=== PATIENT | female | born 1960 | race Caucasian/White ===

== ENCOUNTER 2016-11-01 05:52 | Day surgery (SDC) | payer BC ==
--- NOTE | ~2016-11-01 | EGD ---
EGD REPORT [facility] [address] [place] [place]. [address] NAME: IRAIS ALLEN : [birth year] STATUS : [facility]#: [id number] AGE: 56 ADM/REG DATE : 11/01/16 MR#: [id number] REPORT SERV DATE: 11/07/16 DICTATED BY: NIKO ROMERO DATE: 11/07/16 REPORT STATUS : Draft TRANSCRIBED BY: [employer] DATE: 11/07/16 [facility] Patient Name: Irais Allen Date of : 1960 Attending MD: NIKO ROMERO MD Procedure Date No Time: 11/01/2016 Procedure: Upper GI endoscopy Indications: Gastro-esophageal reflux disease, Nausea Referring MD: TIMO ROMO Medicines: See the Anesthesia note for documentation of the administered medications Complications: No immediate complications. Procedure: Pre-Anesthesia Assessment: - ASA Grade Assessment: III - A patient with severe systemic disease. After obtaining informed consent, the endoscope was passed under direct vision. Throughout the procedure, the patient's blood pressure, pulse, and oxygen saturations were monitored continuously. The GIF [id number] [id number] was introduced through the mouth, and advanced to the jejunum. The upper GI endoscopy was accomplished without difficulty. The patient tolerated the procedure well. Findings: The examined jejunum was normal. The examined esophagus was normal. Normal gastric bypass anatomy The gastric body was normal. Biopsies were taken with a cold forceps for histology. Impression: - Normal examined jejunum. - Normal esophagus. - Normal gastric bypass anatomy - Normal gastric body. Biopsied. Recommendation: - Patient has a contact number available for emergencies. The signs and symptoms of potential delayed complications were discussed with the patient. Return to normal activities tomorrow. Written discharge instructions were provided to the patient. - Regular diet. - Continue present medications. - FOR YOUR BIOPSY RESULTS: Please go to [email or web address] and register to receive your EGD REPORT [facility] [address] [address] NAME: RIAIS ALLEN : [birth year] STATUS : [facility] PAT#: [id number] AGE: 56 ADM/REG DATE : 11/01/16 MR#: [id number] REPORT SERV DATE: 11/07/16 DICTATED BY: NIKO ROMERO DATE: 11/07/16 REPORT STATUS : Draft TRANSCRIBED BY: [employer] DATE: 11/07/16 results via the portal. Your biopsy results will be posted there in about 7 to 10 days. IF you do not see result in 10 days, call office. Procedure Code(s): --- Professional --- 78170, Esophagogastroduodenoscopy, flexible, transoral; with biopsy, single or multiple Diagnosis Code(s): --- Professional --- K21.9, Gastro-esophageal reflux disease without esophagitis R11.0, Nausea CPT copyright 2013 [employer]. All rights reserved. The codes documented in this report are preliminary and upon commercial real estate associate review may be revised to meet current compliance requirements. Niko Romero MD NIKO ROMERO MD 11/01/2016 7:10 AM This report has been signed electronically. Number of Addenda: 0 Note Initiated On: 11/01/2016 6:59 AM Scope Withdrawal Time 0 hours 0 minutes [address] [place], [place] [address] [address]
--- NOTE | ~2016-11-01 | EGD ---
EGD REPORT [facility] [address] [place]. [address] NAME: IRAIS ALLEN : [birth year] STATUS : REG [facility]#: [id number] AGE: 56 ADM/REG DATE : 11/01/16 MR#: [id number] REPORT SERV DATE: 11/01/16 DICTATED BY: NIKO ROMERO DATE: 11/01/16 REPORT STATUS : Draft TRANSCRIBED BY: [employer] DATE: 11/01/16 [facility] Patient Name: Irais Allen Date of : 1960 Attending MD: NIKO ROMERO MD Procedure Date No Time: 11/01/2016 Procedure: Colonoscopy Indications: High risk colon cancer surveillance: Personal history of colonic polyps, Last colonoscopy: April 2013 Referring MD: TIMO ROMO Medicines: See the Anesthesia note for documentation of the administered medications Complications: No immediate complications. Procedure: Pre-Anesthesia Assessment: - ASA Grade Assessment: III - A patient with severe systemic disease. After I obtained informed consent, the scope was passed under direct vision. Throughout the procedure, the patient's blood pressure, pulse, and oxygen saturations were monitored continuously. The [id number] was introduced through the anus and advanced to the cecum, identified by appendiceal orifice and ileocecal valve. The colonoscopy was performed without difficulty. The patient tolerated the procedure well. The quality of the bowel preparation was adequate. Findings: The perianal and digital rectal examinations were normal. Internal hemorrhoids were found during retroflexion and were small. A sessile polyp was found in the cecum. The polyp was small in size. The polyp was removed with a cold biopsy forceps. Resection and retrieval were complete. Two sessile polyps were found in the ascending colon. The polyps were small in size. These polyps were removed with a cold biopsy forceps. Resection and retrieval were complete. A sessile polyp was found in the transverse colon. The polyp was 10 mm in size. The polyp was removed with a hot snare. Resection and retrieval were complete. Impression: - Internal hemorrhoids. - One small polyp in the cecum. Resected and retrieved. - Two small polyps in the ascending colon. Resected and retrieved. - One 10 mm polyp in the transverse colon. Resected and retrieved. EGD REPORT [address] [address] NAME: IRAIS ALLEN : [birth year] STATUS : [facility] [place]#: [id number] AGE: 56 ADM/REG DATE : 11/01/16 MR#: [id number] REPORT SERV DATE: 11/01/16 DICTATED BY: NIKO ROMERO DATE: 11/01/16 REPORT STATUS : Draft TRANSCRIBED BY: [employer] DATE: 11/01/16 Recommendation: - Patient has a contact number available for emergencies. The signs and symptoms of potential delayed complications were discussed with the patient. Return to normal activities tomorrow. Written discharge instructions were provided to the patient. - Regular diet. - Continue present medications. - Repeat colonoscopy in 3 years for surveillance. - FOR YOUR BIOPSY RESULTS: Please go to [email or web address] and register to receive your results via the portal. Your biopsy results will be posted there in about 7 to 10 days. IF you do not see result in 10 days, call office. Procedure Code(s): --- Professional --- 77946, Colonoscopy, flexible, proximal to splenic flexure; with removal of tumor(s), polyp(s), or other lesion(s) by snare technique 37863, 59, Colonoscopy, flexible, proximal to splenic flexure; with biopsy, single or multiple Diagnosis Code(s): --- Professional --- K64.8, Other hemorrhoids D12.3, Benign neoplasm of transverse colon D12.2, Benign neoplasm of ascending colon D12.0, Benign neoplasm of cecum Z86.010, Personal history of colonic polyps CPT copyright 2013 [place]. All rights reserved. The codes documented in this report are preliminary and upon agriculture laboratory technician review may be revised to meet current compliance requirements. Niko Romero MD NIKO ROMERO MD 11/01/2016 7:32 AM This report has been signed electronically. Number of Addenda: 0 Note Initiated On: 11/01/2016 6:57 AM Scope Withdrawal Time 0 hours 15 minutes 50 seconds [address] [place] [address]
--- NOTE | ~2016-11-01 | EGD ---
EGD REPORT [facility] [address]. [address] NAME: OSMAN ALLEN : [birth year] STATUS : REG [facility]#: [id number] AGE: 56 ADM/REG DATE : 11/01/16 MR#: [id number] REPORT SERV DATE: 11/01/16 DICTATED BY: NIKO ROMERO DATE: 11/01/16 REPORT STATUS : Draft TRANSCRIBED BY: [employer] DATE: 11/01/16 [facility] Center Patient Name: Osman Allen Date of : 1960 Attending MD: NIKO ROMERO MD Procedure Date No Time: 11/01/2016 Procedure: Upper GI endoscopy Indications: Gastro-esophageal reflux disease, Nausea Referring MD: TIMO ROMO Medicines: See the Anesthesia note for documentation of the administered medications Complications: No immediate complications. Procedure: Pre-Anesthesia Assessment: - ASA Grade Assessment: III - A patient with severe systemic disease. After obtaining informed consent, the endoscope was passed under direct vision. Throughout the procedure, the patient's blood pressure, pulse, and oxygen saturations were monitored continuously. The GIF [id number] [id number] was introduced through the mouth, and advanced to the jejunum. The upper GI endoscopy was accomplished without difficulty. The patient tolerated the procedure well. Findings: The examined jejunum was normal. The examined esophagus was normal. Normal gastric bypass anatomy The gastric body was normal. Biopsies were taken with a cold forceps for histology. Impression: - Normal examined jejunum. - Normal esophagus. - Normal gastric bypass anatomy - Normal gastric body. Biopsied. Recommendation: - Patient has a contact number available for emergencies. The signs and symptoms of potential delayed complications were discussed with the patient. Return to normal activities tomorrow. Written discharge instructions were provided to the patient. - Regular diet. - Continue present medications. - FOR YOUR BIOPSY RESULTS: Please go to [email or web address] and register to receive your EGD REPORT [facility] [address]. [address] NAME: OSMAN ALLEN : [birth year] STATUS : REG [facility] PAT#: [id number] AGE: 56 ADM/REG DATE : 11/01/16 MR#: [id number] REPORT SERV DATE: 11/01/16 DICTATED BY: NIKO ROMERO DATE: 11/01/16 REPORT STATUS : Draft TRANSCRIBED BY: [employer] DATE: 11/01/16 results via the portal. Your biopsy results will be posted there in about 7 to 10 days. IF you do not see result in 10 days, call office. Procedure Code(s): --- Professional --- 75402, Esophagogastroduodenoscopy, flexible, transoral; with biopsy, single or multiple Diagnosis Code(s): --- Professional --- K21.9, Gastro-esophageal reflux disease without esophagitis R11.0, Nausea CPT copyright 2013 [employer]. All rights reserved. The codes documented in this report are preliminary and upon salesperson men's and boys' clothing review may be revised to meet current compliance requirements. Niko Romero MD NIKO ROMERO MD 11/01/2016 7:10 AM This report has been signed electronically. Number of Addenda: 0 Note Initiated On: 11/01/2016 6:59 AM Scope Withdrawal Time 0 hours 0 minutes [address] [place], [place] [address] [address]
[~2016-11-01 05:52] MED LIST: AMIT50 PO; ANSAID100 MG OR; BENICAR HCT1 TAB PO; BENICAR20 PO; BUM1 PO; BUM2 PO; CEREFOLINNAC PO; COREG6 PO; COZ50 PO; CYMBALTA60 PO; DCN100 PO; ENBREL25 MG SC; HALCION0.25 MG PO; HUMIRA SC; LORTAB 5 PO; LUNESTA3 MG PO; LYRICA75 PO; MULTIPLE VIT PO; NORCO1 TA1 PO; NUCYNTA50 MG PO; ORTHO NOVUM PO; ORTHO-NOVUM1 TAB PO; OTEZLA30 MG PO; PCET PO; PERCOCET1 TA4 PO; PLAQ200B PO; PRILOSEC40 MG PO; SEROQUEL300 MG PO; SYN075 PO; TREXALL15 MG PO; ULTRAM50 PO; WELLXL300 PO; ZANAFLEX 4 MG TA4 MG PO
== END 2016-11-01 23:59 | disposition home or self-care (01) ==
LOC: DMU 05:52
PROVIDERS: Internal Medicine Gastroenterology
PROC: 0DB68ZX Excision of Stomach, Via Natural or Artificial Opening Endoscopic, Diagnostic (ICD-10-PCS; 2016-11-01)
PROC: 0DBH8ZZ Excision of Cecum, Via Natural or Artificial Opening Endoscopic (ICD-10-PCS; principal; 2016-11-01 07:30)
PROC: 0DBL8ZZ Excision of Transverse Colon, Via Natural or Artificial Opening Endoscopic (ICD-10-PCS; 2016-11-01 07:30)
PROC: 0DBK8ZZ Excision of Ascending Colon, Via Natural or Artificial Opening Endoscopic (ICD-10-PCS; 2016-11-01 07:30)
DX: Z12.11 Encounter for screening for malignant neoplasm of colon (principal); D12.3 Benign neoplasm of transverse colon; D12.2 Benign neoplasm of ascending colon; D12.0 Benign neoplasm of cecum; K64.8 Other hemorrhoids; K21.9 Gastro-esophageal reflux disease without esophagitis; Z86.010 Personal history of colon polyps; I10 Essential (primary) hypertension; E66.9 Obesity, unspecified; L40.9 Psoriasis, unspecified; Z79.899 Other long term (current) drug therapy; Z79.891 Long term (current) use of opiate analgesic
CPT/HCPCS: 88305